=== PATIENT | male | born 1995 | race Caucasian/White ===

== ENCOUNTER → 2022-07-15 09:14 | Outpatient (CLI) | payer OTHER, SELFPAY ==
--- NOTE | 2022-07-15 09:37 | DI.MRI.S_ITS ---
PROCEDURE: MR FOOT RT WO CON INDICATIONS: Pain in right foot TECHNIQUE: Noncontrast sagittal T1 spin echo and T2 fast spin echo with fat saturation, long-axis T1 spin echo and T2 fast spin echo with fat saturation, short-axis T1 spin echo and T2 fast spin echo with fat saturation through the forefoot. COMPARISON: None. FINDINGS: Image quality: Excellent. MRI of the right forefoot. Findings: MRI of the right forefoot shows no significant abnormality in the area of the patient's pain which is marked on the examination. No soft tissue masses or loculated fluid collections are identified. Marrow signal in the visualized bones appears within normal limits. Musculature appears within normal limits. Visualized ligaments and tendons appear intact. There appears to be small to moderate sized joint effusions in the 2nd through 4th tarsometatarsal joints. IMPRESSION: 1. Small to moderate-sized joint effusions in the 2nd through 4th tarsometatarsal joints. 2. No underlying soft tissue mass or focal lesion in the area of clinical concern which is marked on this MRI. Dictated by: Ricardo Taylor M.D. on 07/15/2022 at 12:16 Approved by: Ricardo Taylor M.D. on 07/15/2022 at 12:24
== END ==
PROVIDERS: Referring Provider Student in an Organized Health Care Education/Training Program; Visit Provider Student in an Organized Health Care Education/Training Program
DX: M79.671 Pain in right foot (principal); M25.474 Effusion, right foot
CPT/HCPCS: 73718